=== PATIENT | male | born 1975 | race Caucasian/White ===

== ENCOUNTER 2023-07-19 21:01 | Emergency (ER) | payer MEDICAID ==
[~2023-07-19] VITALS: Ht 175.3 cm; Wt 181.4 kg
[2023-07-19 21:05] VITALS: BP 148/80; PULSE 90; RESP 20; TEMP 98; O2SAT 96
[2023-07-19 22:28] VITALS: O2SAT 97
[2023-07-19] MEDS: KETOROLAC 30 MG/ML VIAL IM ONE (22:37)
[2023-07-19 23:05] LABS: ANION GAP 13.4 (8-16); CALCIUM 8.5 mg/dL (8.5-10.1); CARBON DIOXIDE 27.9 mmol/L (21-32); CREATININE 1.2 mg/dL (0.6-1.3); POTASSIUM 3.3 mmol/L (3.5-5.1)
[2023-07-19] MEDS ORDERED: ACET-10509 PO (23:35)
[2023-07-19] MEDS: POTASSIUM CHLORIDE 10 MEQ TABER PO ONE (23:51)
[2023-07-20 00:07] VITALS: BP 153/91; PULSE 91; RESP 18; TEMP 98.4; O2SAT 97
== END 2023-07-20 00:07 | disposition home or self-care (01) ==
LOC: MED 21:01
DX: M54.30 Sciatica, unspecified side (principal); M79.661 Pain in right lower leg; M79.662 Pain in left lower leg; M25.551 Pain in right hip; M25.552 Pain in left hip; E87.6 Hypokalemia; Z79.899 Other long term (current) drug therapy
CPT/HCPCS: 36415; 80048; 96372; 99283; J1885